=== PATIENT | male | born 1980 | race African-American/Black ===

== ENCOUNTER 2019-11-04 19:01 | Inpatient (IN) | payer OTHER ==
[~2019-11-04] VITALS: Ht 172.7 cm; Wt 83.9 kg
[~2019-11-04 19:01] MED LIST: DILAUDID 2 MG TA2 MG PO; DILAUDID2 M1 PO; OXYCONTIN80 MG PO; PERCOCET 5-3251 EACH PO
[2019-11-04 19:04] VITALS: BP 122/66
[2019-11-04 19:17] LABS: URINE BILIRUBIN NEGATIVE (Negative); URINE BLOOD NEGATIVE (Negative); URINE CLARITY CLEAR; URINE COLOR YELLOW; URINE GLUCOSE-RANDOM* NEGATIVE (Negative); URINE KETONES NEGATIVE (Negative); URINE NITRITE-REFLEX NEGATIVE (Negative); URINE PROTEIN (DIPSTICK) NEGATIVE (Negative)
[2019-11-04 19:18] LABS: URINE LEUKOCYTES-REFLEX 1+ (Negative)
[2019-11-04 19:29] LABS: SQUAMOUS 4-10 Moderate /LPF (0-3)
[2019-11-04 19:30] LABS: BACTERIA-REFLEX 1-9 Few /HPF (None Seen); CASTS None Seen /LPF (None Seen); CRYSTALS None Seen /LPF (None Seen); URINE RBC 0-2 Rare /HPF (0-2); URINE WBC-REFLEX 0-5 Rare /HPF (0-5)
[2019-11-04 20:11] LABS: CREATININE 1.2 mg/dL (0.7-1.3); POTASSIUM 4.1 mmol/L (3.5-5.1)
[2019-11-04 20:14] LABS: HEMATOCRIT 31.5 % (42.0-52.0); HEMOGLOBIN 10.4 gm/dL (14.0-18.0); MCH 26.5 pg (26.0-34.0); MCHC 33.1 g/dL (28.0-37.0); PLATELET COUNT 430 thou/uL (150-400); RBC 3.93 mil/uL (4.50-6.00); RDW 27.9 % (10.5-14.5); WBC 12.8 thou/uL (4.0-11.0)
[2019-11-04 20:17] LABS: ALBUMIN 3.6 g/dL (3.4-5.0); TOTAL BILIRUBIN 3.6 mg/dL (<0.1-1.0); TOTAL PROTEIN 7.5 g/dL (6.4-8.2)
[2019-11-04 20:35] LABS: ABSOLUTE NEUTROPHILS 5.4 thou/uL (1.4-8.2); ATYPICAL LYMPHS 8 %; NUCLEATED RBCS 1 /100WBC
[2019-11-04 20:37] LABS: TARGET CELLS 2+
[2019-11-04 20:38] LABS: ANISOCYTOSIS 3+
[2019-11-04 20:41] LABS: ABSOLUTE RETIC COUNT 0.3115 10^6/uL; OBSERVED RETIC COUNT 7.87 % (0.6-2.6)
--- NOTE | 2019-11-04 22:09 | NUR ---
REPORT ATTEMPT #1 AT [id number]
[2019-11-04 22:30] VITALS: BP 101/59
[2019-11-04 22:41] VITALS: BP 95/44
[2019-11-05 04:22] LABS: AMP/METHAMP Negative (Negative); BARBITURATES Negative (Negative); BENZODIAZEPINES Negative (Negative); COCAINE Negative (Negative); METHADONE Negative (Negative); OPIATES POSITIVE (Negative); PCP Negative (Negative)
[2019-11-05 05:00] VITALS: BP 99/56
--- NOTE | 2019-11-05 05:58 | NUR ---
PT ARRIVED TO UNIT APPROX 2230, ADMISSION AND ASSESSMENT COMPLETED. PT DENIED SOB OR NAUSEA. C/O GENERALIZED PAIN IN JOINTS WELL LOWER LEFT ABD. REPORTED LAST BM 11/04/19. C/O ITCHING, REQUESTED BENADRYL. GIVEN DILAUDID x2 AND OXY x1. IVF AND ABX INFUSING. NO OTHER CONCERNS, WILL CONTINUE TO MONITOR.
[2019-11-05 07:53] VITALS: BP 90/47
[2019-11-05 11:52] VITALS: BP 103/69
[2019-11-05 15:34] VITALS: BP 124/74
--- NOTE | 2019-11-05 18:33 | NUR ---
PT is A&OX3, PT starts IV NS @ 150ML/HR, PT is continuing pain management, pt's vs are stable at this time, pt denies N/V and sob at this time.
[2019-11-05 19:15] VITALS: BP 119/77
--- NOTE | 2019-11-06 04:57 | NUR ---
AQUIRED CARE OF PATIENT AT 1915. PATIENT ALERT AND ORIENTED X4. C/O PAIN Q2-3HOURS. IV OF NS INFUSING IN RAC AT 150ML/HR. UP IN ROOM BY SELF. C/O ITCHING, BENADRYL GIVEN IVP. SLEPT VERY LITTLE THIS SHIFT.
[2019-11-06 05:23] VITALS: BP 100/61
[2019-11-06 07:10] VITALS: BP 108/68
[2019-11-06 11:20] VITALS: BP 129/78
[2019-11-06 15:24] VITALS: BP 112/55
--- NOTE | 2019-11-06 15:57 | NUR ---
INITIAL ASSESSMENT: Received consult for discharge planning/insurance clarification/follow up care. MARY reviewed chart and spoke with nursing and attending physician. Pt was admitted from home due to sickle cell crisis. Pt to transfer from 3W to 4S due to not needing telemetry. MARY met with pt at bedside. Introduced role of SW. Pt is alert/orientated x 4. Pt reports that he lives at home in [place]. SW asked about his current insurance. Pt states that he should have [place] Medicaid, but was told that he has [place] Medicaid. Pt states he might move to the [place] side, but unsure at this time. Pt does not have a PCP. Per chart, pt with hx of medical non-compliance. MARY discussed with UR RN regarding status of Medicaid. SW is following to assist as needed with discharge planning.
--- NOTE | 2019-11-06 16:15 | NUR ---
transfered to 433 after medicated with narcotic analgesic and benedryl as per request and as per order. Report given to recieving nurse including plan for diagnostic testing tomorrow complicated by requirement to remain without narcotics for ten hours prior. Will be unlikely to be able to tolerate this d/t pain from disease process. Uneventful shift otherwise. remaining clinically stable at this time.
--- NOTE | 2019-11-06 17:47 | NUR ---
ASSUMED CARE OF THE PT AT 1630. PTS PAIN IS BEING CONTROLLE BY PAIN MEDICATION, PT REFUSED TO NOT RECEIVE PAIN MEDS DUE TO SCHEDULED PROCEDURE. PT IS AMBULATORY. LUNGS ARE CLEAR, PULSES ARE STRONG. RE EDUCATED PT ON HOW OFTEN PAIN MEDICATION COULD BE GIVEN, PT UNDERSTOOD. IV DRY AND INTACT. CALL LIGHT IS WITHIN REACH. WILL CONTINUE TO MONITOR THE PT.
[2019-11-06 19:10] VITALS: BP 102/51
[2019-11-07 04:05] VITALS: BP 103/65
--- NOTE | 2019-11-07 07:10 | NUR ---
PT AOX4. PT REPORTS PAIN 6-8/10 THROUGHOUT BODY, HIPS, SHOULDERS, AND KNEES. PT RECEIVING PRN Q4HR IV DILAUDID, HAS PO PRN DILAUDID AVAILABLE REFUSES TO TAKE. PT ALSO RECEIVING PRN PO OXYCODONE Q4HR. PT ALSO REPORTS ITCHING THROUGHOUT BODY. PT RECEIVING PRN IV BENADRYL Q6HR, HAS PO PRN BENADRYL AVAILABLE REFUSES TO TAKE. PT REPORTS DIFFICULTY WITH PO INTAKE DUE TO N/V. NO EPISODES OF N/V THIS SHIFT. PT AMBULATES INDEPENDENTLY WITHOUT ISSUE, USES URINAL AND BATHROOM. PT ENCOURAGED TO NOTIFY STAFF FOR ALL NEEDS. BED IN LOWEST POSITION, CALL LIGHT WITHIN REACH. WILL CONTINUE TO MONITOR.
--- NOTE | 2019-11-07 07:18 | HC ---
[facility] [place] [address] CONSULTATION Name: SHON MIRANDA Room #: 433-I ADM IN M.R.#: [id number] Admission: 11/04/19 Attend Phys: Mukund Mckeon MD Discharge: Date of : 82 Report #: [id number] THIS REPORT FOR: //name// CC: [facility] physician/PCP Mukund Sanon DATE OF SERVICE: 11/06/2019 HISTORY OF PRESENT ILLNESS: The patient is a 39-year-old gentleman with a history of sickle cell disease, who was admitted for abdominal pain. He describes the pain as sort of being mostly in the right upper quadrant, does not really seem to be changed by eating or drinking. Does feel maybe a little bit better when he is lying with his right side down. He does not look he is constipated. He has had some of this abdominal pain before but it had been much milder, feels like this is different. He denies any recent fevers or chills. No skin rash. No bleeding. Note that he is on antibiotics. Note that he had an ultrasound that sounds gallstones, but no gallbladder wall thickening. Chest x-ray was nonacute. Lab work here had hemoglobin of 10.4, white count 12.8, platelets 430. Total bilirubin 3.6. Note that we do not have outside lab from or elsewhere for comparison. Note that the patient was discharged from [facility] on 10/20/2019. There notes talked about frequent admissions. They also talk about opiate seeking behavior. They also talked about broken opiate contracts with providers. We also have records from Dr. Sanon showing that the patient did not keep appointments and hung up on them and they tried calling back about future appointments. There was also notes about preferring to try to about discuss with the patient trying to limit his opiate use, which is currently fairly high at 20 or 30 mg oxycodone q.6 hours. The patient states that he usually uses the high dose and goes to a lower dose, not sure if this is true or not. PAST MEDICAL HISTORY: Notable for the history of sickle cell anemia with troubles per Dr. Sanon's notes beginning about 2 years with chronic back pain and joint pains. Also in the past with hemoglobin electrophoresis consistent with SS disease with 9% hemoglobin. Also, history of avascular necrosis with left shoulder surgery in 2007, left shoulder injection in 2017, left shoulder replacement in 2018 with bilateral hip injections 01/2019. The patient said he had surgery hips recently, history of depression and anxiety, had been on BuSpar. He likes Xanax, but Dr. Sanon said she did not wish to prescribe this, evidently had been in nursing home at one time, had also been at [facility] as well as [facility] and also maybe [facility] in [place] in the past. He had acute chest syndrome in 2002. Denies any history of thrombosis, arterial clots. Has maybe had 5 episodes of blood transfusion per her note. He did have priapism several times as a [facility] [address] [place] [address] CONSULTATION Name: SHON MIRANDA Wne Room #: 433-I ADM IN .R.#: [id number] Admission: 11/04/19 Attend Phys: Mukund Mckeon MD Discharge: Date of : 82 Report #: [id number] teenager, has SCD ewxacerbations about twice per month, requiring frequent ER visits, have been on Hydrea for 6 or 7 years, restarted in June 2018 with intermittent compliance, also has a history of tobacco abuse disorder, history of gonorrhea in the past, history of osteoarthritis. Reportedly, he had upper GI in the past. FAMILY HISTORY: Mother had seizures, maternal aunt with diabetes, maternal grandmother with breast cancer. SOCIAL HISTORY: Single, not . Former smoker about a quarter pack a day for half year. Alcohol in the past listed as may be 12 cans of beer per week, not sure if this is up-to-date or not. ALLERGIES: REPORTEDLY TO SULFA AND PENICILLIN. These were reported in [facility] records. MEDICATIONS: At this time currently include ceftriaxone 1 gram q. 24, Lovenox 40 at bedtime, Benadryl 25 q.6 p.r.n. IV, hydromorphone 1 mg q.4 p.r.n., folic acid 1 mg daily, hydroxyurea 500 b.i.d., docusate 100 b.i.d., OxyIR 30 mg q.4 p.o. p.r.n., promethazine 25 q.6 p.r.n. p.o., throat lozenges q.2 p.r.n., Zofran as needed. PHYSICAL EXAMINATION: GENERAL: The patient appears his stated age. He is alert and oriented x 3. VITAL SIGNS: Height is 5 feet 8 inches, 172.7 cm. His weight 185 pounds, 84 kilograms. HEENT: Face is symmetrical. Speech and thought pattern normal. HEART: Regular rate. LUNGS: Clear. ABDOMEN: Slightly tender in the right upper quadrant. No definite masses. EXTREMITIES: Without clubbing or cyanosis. No edema. MOOD: He is conversant. NEUROLOGIC: Moving extremities. Speech and thought pattern normal. LABORATORY DATA: Here notable for BUN of 8, creatinine 1.2, total bilirubin 3.6. Nothing for comparison. Drug screen notable for opiates and marijuana. White count 12.8, hemoglobin 10.4, platelets 430. Differential nonacute. Absolute retic count is pending. LDH is pending. UA notable for contamination of squamous cells. ASSESSMENT AND PLAN: 1. Sickle cell crisis disease. Note the past hemoglobin electrophoresis confirmed sickle cell anemia, agree with hydration and folic acid. We will add and Endari/glutamine if available. Patient previously on hdydrea and would suggest continued use. 2. Opioid use disorder and pain. Continue cautious use of hydromorphone and [facility] [address] [place] [address] CONSULTATION Name: SHON MIRANDA Room #: 433-I ADM IN ..#: [id number] Admission: 11/04/19 Attend Phys: Mukund Mckeon MD Discharge: Date of : 82 Report #: [id number] oxycodone. He has also broken several opiate contracts with [facility] providers. 3. Anemia, not low enough to transfuse. 4. Questionable abdominal pain, etiology, as mentioned above, saw ultrasound results, may consider asking General Surgery to see. We will follow with you. <ELECTRONICALLY SIGNED> By: Jayce Benitez MD 11/07/19 0718 [id number] Jayce Benitez MD /nt
[2019-11-07 07:55] VITALS: BP 101/55
--- NOTE | 2019-11-07 11:43 | NUR ---
Assumed care of pt at 0700. Up ad dipti in room. IVF infusing. Pt c/o pain in hips and abdomen. Pipida scan ordered. Pt to remain NPO and no narcotics for at least 4 hours. Pt educated. Midline placed by IV team due to labs unable to be drawn peripherally. Call light within reach. Will continue to monitor.
[2019-11-07 12:11] LABS: ALBUMIN 3.6 g/dL (3.4-5.0); CALCIUM 9.2 mg/dL (8.5-10.1); CREATININE 1.1 mg/dL (0.7-1.3); POTASSIUM 4.4 mmol/L (3.5-5.1); TOTAL BILIRUBIN 2.6 mg/dL (<0.1-1.0); TOTAL PROTEIN 7.3 g/dL (6.4-8.2)
--- NOTE | 2019-11-07 12:32 | NUR ---
MIDLINE PROCEDURE. VASCULAR ACCESS CONSULTED DUE TO DIFFICULT STICK AND FREQ LAB DRAW. RISK,BENEFITS, AND ALTERNATIVE TREATMENT DISCUSSED. TEACHING GIVEN RELATED TO POSSIBLE COMPLICATIONS SUCH BLEEDING, INFECTION, OR CLOT. PATIENT VOICES UNDERSTANDING OF THE ABOVE AND GIVES VERBAL CONSENT. RUE BRACHIAL WIDELY PATENT WITH ML PLACED PER ULTRASOUND GUIDANCE. PATIENT TOLERATED WELL. MIDLINE SINGLE LUMEN 4FR TRIMMED TO 12CM WITH INTERNAL AT 12CM. OCM EXTERNAL. NO EDEMA AT THE SITE.MIDLINE RELEASED PER PROTOCOL FOR IMMEDIATE USE.
[2019-11-07 14:13] LABS: ABSOLUTE RETIC COUNT 0.2802 10^6/uL; HEMATOCRIT 33.8 % (42.0-52.0); MCH 26.4 pg (26.0-34.0); MCHC 32.7 g/dL (28.0-37.0); MCV 80.7 fL (80.0-100.0); OBSERVED RETIC COUNT 6.7 % (0.6-2.6); RBC 4.18 mil/uL (4.50-6.00); RDW 28.4 % (10.5-14.5); WBC 8.9 thou/uL (4.0-11.0)
[2019-11-07 16:57] VITALS: BP 111/76
[2019-11-07 19:04] VITALS: BP 107/67
--- NOTE | 2019-11-08 00:12 | NUR ---
ASSESSMENT COMPLETED AT THE START OF SHIFT.PT C/O GEN PAIN,THIS NURSE WENT INTO PT'S ROOM AND GAVE HIM HIS MED,PT WAS OBSERVED PRETENDING TO TAKE MED WHILE STILL HOLDING THE MED IN HIS HAND.PT WAS ENCOURAGED BY THIS NURSE TO TAKE HIS MED HE WAS STILL HOLDING UNTO MED.PT STARTED TO ARGUE STATING THAT HE TOOK HIS MED ALREADY.PT ANGRILY TOOK MEDS WHEN HE NOTICED THAT THE NURSE WAS STILL WATCHING HIM.UP ADLIB IN THE ROOM.PT REFUSED TO TAKE HIS LOVENOX AT HS.IVF AND ABX INFUSING ORDERED.HS SNACKS GIVEN TO PT PER HIS REQUEST.PT RESTING ON HIS BED AT THIS TIME.CALL LIGHT WITHIN REACH.
[2019-11-08 08:35] VITALS: BP 114/76
--- NOTE | 2019-11-08 11:36 | NUR ---
PT CARE ASSUMED AT 0700. A&Ox4. PT NEEDS TO BE WATCHED CLOSELY WHEN TAKING HIS MEDICATION HE HAS BEEN OBSERVED TO POCKET. PT DID NOT ATTEMPT HIS WITH ME THIS MORNING. PT IS UP INDEPENDENTLY. MIDLINE IS PATENT, MIDLINE WAS FLUSHED WITH FLUIDS RUNNING. PT. IS STATING THAT THE STAFF ALL FLUSHES HIS MIDLINE DIFFERENTLY AND THAT HE REQUIRES 5ML NOT 10ML. I REMINDED HIM OF THE LENGHT OF THE MIDLINE CATHETER AND THAT IT REQUIRES PER PROTOCOL TO FLUSH WITH 10CC. HE WAS VERY UPSET ABOUT THIS. PT WANTS TO GET UP AND WALK AROUND THE UNIT TODAY.
[2019-11-08 19:30] VITALS: BP 108/71
--- NOTE | 2019-11-09 01:20 | NUR ---
PT WAS OBSERVED LYING IN BED AT THE START OF SHIFT.PT WAS NOTICEABLY UPSET DURING THE SHIFT.PT COMPLAINED ABOUT THE REDUCTION IN HIS DOSAGE FOR HIS PAIN MED.PT CAME TO THE NURSES STATION IN THE COMPANY OF HIS FRIEND AND REQUESTED TO BE UNHOOKED FROM HIS IV SO THAT HE CAN GO OUTSIDE THE HOSPITAL WITH HIS FRIEND. PT WAS REMINDED THAT A STAFF HAS TO GO WITH HIM OUTSIDE.PT AND HIS FRIEND GOT UPSET ABOUT THIS AND THEY STARTED REQUESTING TO SEE THE POLICY WHERE IT WAS STATED THAT HE CAN ONLY GO OUT WITH A STAFF.PT INSISTED ON LEAVING THE UNIT ON HIS OWN SO THIS NURSE CALLED SECURITY AND THE NEURO OPHTHALMOLOGIST WAS NOTIFIED TOO.SECURITY AND THE NEURO OPHTHALMOLOGIST TRIED TO EXPLAIN THE POLICY TO HIM AND HIS FRIENS BUT THE PT KEPT ARGUING WITH THEM.PT FINALLY WENT BACK TO HIS ROOM. MINUTES LATER,PT CAME OUT AGAIN TO THE NURSES STATION REQUESTING FOR PAIN MED,THIS NURSE ASKED PT TO RATE HIS PAIN ON A SCALE OF 1-10.PT REFUSED TO RATE HIS PAIN BUT HE STATED "IT IS THE SAME IT HAS BEEN ALL DAY". THIS NURSE REMINDED PT THAT SHE JUST GOT ON SHIFT AND DIDN'T KNOW WHAT HIS PAIN LEVEL HAD BEEN ALL DAY.PT FINALLY GAVE THIS NURSE A PAIN LEVEL AFTER THE BELT LOOP CUTTER TALKED WITH HIM.MED ADMINISTERED ORDERED.IVF INFUSING ORDERED.CALL LIGHT WITHIN REACH.
[2019-11-09 08:20] VITALS: BP 109/76
--- NOTE | 2019-11-09 09:26 | NUR ---
PT CARE ASSUMED AT 0700. A&Ox4. PT ASKED FOR HIS MORNING MEDICATIONS AND WHEN I BROUGHT THEM HE REFUSED THEM BECAUSE THEY WERE PO NO IV. AFTER EXPLAINING TO HIM THAT WHEN HE DISCHARGES MAGGIE OF HIS MEDICATIONS WILL BE IV HE STATED THAT IF HE CANNOT HAVE THEM IV FORM THEN HE DOES NOT WANT ANY OF THEM AT ALL. HE TURNED TO HIS SIDE COVERED HIS HEAD AND IGNORED ANY INTERACTION AFTER THAT. PT STATED THAT IF WE CANNOT GIVE HIM IV MEDS AND DISCHARGE HIM ON 2 WEEKS OF OXYCODONE THEN HE WANTS TO GO AHEAD AND LEAVE. MIDLINE PATENT WITH NO REDNESS OR SWELLING AND FLUIDS INFUSING.
[2019-11-09] MEDS ORDERED: HYDREA 500 MG500 M1 PO (12:06)
[2019-11-09] MEDS ORDERED: FOLIC ACID1 MG PO (12:06)
[2019-11-09] MEDS ORDERED: TYLENOL325 MG PO (12:06)
[2019-11-09 12:29] VITALS: BP 109/76
[2019-11-09 16:11] VITALS: BP 109/76
== END 2019-11-09 17:58 | disposition home or self-care (01) | DRG 812 ==
LOC: ER 19:01 → EROBS 21:45 → 3W 21:45 → 4S 11-06 16:20
PROVIDERS: Internal Medicine Hematology & Oncology; Nurse Practitioner Family; ADMIT Internal Medicine
PROC: 05HY33Z Insertion of Infusion Device into Upper Vein, Percutaneous Approach (ICD-10-PCS; principal; 2019-11-07)
PROC: B54MZZA Ultrasonography of Right Upper Extremity Veins, Guidance (ICD-10-PCS; principal; 2019-11-07)
DX: D57.00 Hb-SS disease with crisis, unspecified (principal); N39.0 Urinary tract infection, site not specified; E78.00 Pure hypercholesterolemia, unspecified; G89.29 Other chronic pain; D64.9 Anemia, unspecified; E80.6 Other disorders of bilirubin metabolism; F32.9 Major depressive disorder, single episode, unspecified; F41.9 Anxiety disorder, unspecified; Z96.612 Presence of left artificial shoulder joint; D62 Acute posthemorrhagic anemia; K80.20 Calculus of gallbladder without cholecystitis without obstruction; Z71.51 Drug abuse counseling and surveillance of drug abuser; Z79.891 Long term (current) use of opiate analgesic; Z87.11 Personal history of peptic ulcer disease; Z87.81 Personal history of (healed) traumatic fracture; Z88.2 Allergy status to sulfonamides; Z87.891 Personal history of nicotine dependence; Z83.3 Family history of diabetes mellitus; Z80.3 Family history of malignant neoplasm of breast; Z88.0 Allergy status to penicillin; Z91.14 Patient's other noncompliance with medication regimen
CPT/HCPCS: 10102; 10879; 27000

== ENCOUNTER 2021-01-10 23:12 | Emergency (ER) | payer OTHER ==
[~2021-01-10] VITALS: Ht 175.3 cm; Wt 77.1 kg
[~2021-01-10 23:12] MED LIST changes: +FOLIC ACID1 MG PO; +HYDREA 500 MG500 M1 PO; +TYLENOL325 MG PO
[2021-01-11 00:58] LABS: CALCIUM 8.8 mg/dL (8.5-10.1); CREATININE 1.2 mg/dL (0.7-1.3); POTASSIUM 4.8 mmol/L (3.5-5.1)
[2021-01-11 01:00] LABS: HEMATOCRIT 27.9 % (42.0-52.0); HEMOGLOBIN 9.9 gm/dL (14.0-18.0); MCH 33.7 pg (26.0-34.0); MCHC 35.6 g/dL (28.0-37.0); MCV 94.5 fL (80.0-100.0); OBSERVED RETIC COUNT 11.31 % (0.6-2.6); PLATELET COUNT 287 thou/uL (150-400); RBC 2.95 mil/uL (4.50-6.00); RDW 24.7 % (10.5-14.5); WBC 12.9 thou/uL (4.0-11.0)
[2021-01-11 01:04] LABS: TOTAL BILIRUBIN 7.2 mg/dL (0.2-1.0); TOTAL PROTEIN 7.4 g/dL (6.4-8.2)
[2021-01-11 01:49] LABS: ABSOLUTE NEUTROPHILS 8.4 thou/uL (1.4-8.2)
[2021-01-11 01:50] LABS: ANISOCYTOSIS 3+; PLATELET ESTIMATE NORMAL; POIKILOCYTOSIS 3+; SCHISTOCYTES 1+
[2021-01-11 01:51] LABS: LARGE PLATELETS FEW
[2021-01-11] MEDS ORDERED: NORCO5 PO (01:55)
[2021-01-11] MEDS ORDERED: NAPROSYN500 MG PO (01:55)
[2021-01-11 02:30] VITALS: BP 101/55
== END 2021-01-11 01:52 | disposition home or self-care (01) ==
LOC: ER 23:12
PROVIDERS: Emergency Medicine
DX: D57.818 Other sickle-cell disorders with crisis with other specified complication (principal); E78.00 Pure hypercholesterolemia, unspecified; Z87.891 Personal history of nicotine dependence; Z88.2 Allergy status to sulfonamides; Z79.899 Other long term (current) drug therapy; Z98.890 Other specified postprocedural states